=== PATIENT | male | born 1990 | race Hispanic/Latino ===

== ENCOUNTER → 2023-01-11 | Emergency (ER) | payer OTHER, MEDICARE | LOC: EDH 18:39 | DX: R41.82 Altered mental status, unspecified (principal); Z53.21 Procedure and treatment not carried out due to patient leaving prior to being seen by health care provider ==

== ENCOUNTER → 2023-01-11 | Emergency (ER) | payer OTHER, MEDICARE ==
[~2023-01-11] VITALS: Ht 180.3 cm; Wt 64.4 kg
[2023-01-11 19:47] VITALS: BP 128/78; PULSE 98; RESP 20
== END ==
LOC: EDH 19:44
DX: F41.0 Panic disorder [episodic paroxysmal anxiety] (principal); Z53.21 Procedure and treatment not carried out due to patient leaving prior to being seen by health care provider
CPT/HCPCS: 99281

== ENCOUNTER 2023-07-03 21:13 | Emergency (ER) | payer OTHER, MEDICARE ==
[~2023-07-03] VITALS: Ht 177.8 cm; Wt 63.0 kg
[2023-07-04] MEDS ORDERED: 0.9%NACL 1000ML 1,000 ML IV ONE
[2023-07-04 00:42] LABS: BASOPHILS # (AUTO) 0.03 K/uL (0.00-0.20); BASOPHILS % (AUTO) 0.5 % (0.0-5.0); EOSINOPHILS # (AUTO) 0.06 K/uL (0.00-0.70); EOSINOPHILS % (AUTO) 0.9 % (0.0-8.0); HEMATOCRIT 40.3 % (42-54); IMMATURE GRANULOCYTE ABSOLUTE 0.01 K/uL (0-1); LYMPHOCYTES # (AUTO) 2.4 K/uL (1.0-4.8); LYMPHOCYTES % (AUTO) 36.2 % (21.0-51.0); MEAN CORPUSCULAR HEMOGLOBIN 31.4 pg (27.0-33.0); MEAN CORPUSCULAR HGB CONC 34.5 g/dL (32.0-36.0); MEAN CORPUSCULAR VOLUME 91.2 fL (79-99); MONOCYTES # (AUTO) 0.7 K/uL (0.1-1.0); MONOCYTES % (AUTO) 11.2 % (3.0-13.0); NEUTROPHILS # (AUTO) 3.4 K/uL (1.8-7.7); PLATELET COUNT (AUTO) 90 K/uL (130-400); RED BLOOD CELL COUNT(AUTO) 4.42 MIL/uL (4.50-6.20); RED CELL DISTRIBUTION WIDTH 12.8 % (11.0-15.5); WHITE BLOOD COUNT (AUTO) 6.6 K/uL (4.8-10.8)
[2023-07-04 00:49] LABS: CREATININE 0.6 mg/dL (0.5-1.5); POTASSIUM 3.3 mmol/L (3.5-5.1)
[2023-07-04 00:54] LABS: ALBUMIN 3.9 g/dL (3.5-5.0); BILIRUBIN,TOTAL 0.5 mg/dL (0.2-1.0); TOTAL PROTEIN, SERUM 9.8 g/dL (6.0-8.3)
[2023-07-04] MEDS: LACTATED RINGERS 1000ML 1,000 ML IV ONE (07:57)
[2023-07-04] MEDS: LORAZEPAM 2 MG/ML 1 ML VIAL IVP ONE (07:58)
[2023-07-04] MEDS: FAMOTIDINE 20MG VIAL IV ONE (07:59)
[2023-07-04] MEDS: METOCLOPRAMIDE 10 MG/2 ML VIAL IVP ONE (07:59)
[2023-07-04 08:25] LABS: MAGNESIUM 1.6 mg/dL (1.80-2.40); THYROID STIMULATING HORMONE 2.34 uIU/mL (0.36-3.74)
[2023-07-04] MEDS: ONDANSETRON 4MG INJ ONE (09:04)
[2023-07-04] MEDS: ONDANSETRON 4MG INJ IVP ONE (09:04)
[2023-07-04 12:11] VITALS: BP 134/102; PULSE 90; RESP 18; O2SAT 99
[2023-07-04] MEDS ORDERED: ONDANSETRON 4MG INJ ONE (13:28)
[2023-07-04] MEDS ORDERED: ONDANSETRON 4MG INJ IVP ONE ×2 (13:30→14:00)
[2023-07-04] MEDS ORDERED: LORAZEPAM 2 MG/ML 1 ML VIAL IVP ONE (13:30)
[2023-07-04] MEDS: LORAZEPAM 2 MG/ML 1 ML VIAL IM ONE (13:38)
[2023-07-04] MEDS: LORAZEPAM 2 MG/ML 1 ML VIAL ONE (13:38)
== END 2023-07-04 13:45 | disposition home or self-care (01) ==
LOC: EDH 21:13
DX: F10.129 Alcohol abuse with intoxication, unspecified (principal); F10.10 Alcohol abuse, uncomplicated; F41.9 Anxiety disorder, unspecified; F32.A Depression, unspecified; F20.9 Schizophrenia, unspecified
CPT/HCPCS: 99285; 84443; 83735; 80053; 83690; 85025; 36415; 96374; 96375; 96372; J7120; J3490; J2405 ×2; J2060 ×2; J2765

== ENCOUNTER 2025-01-11 19:21 | Emergency (ER) | payer MEDICARE, MEDICAID ==
[~2025-01-11] VITALS: Ht 180.3 cm; Wt 65.8 kg
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
[2025-01-11 19:50] LABS: IMMATURE GRANULOCYTE ABSOLUTE 0.01 K/uL (0-1); NUCLEATED RED BLOOD CELLS 0.0 % (0.0-0.19); PLATELET COUNT (AUTO) 156 K/uL (130-400); RED BLOOD CELL COUNT(AUTO) 4.48 MIL/uL (4.50-6.20); RED CELL DISTRIBUTION WIDTH 13.5 % (11.0-15.5); WHITE BLOOD COUNT (AUTO) 5.8 K/uL (4.8-10.8)
[2025-01-11 19:57] LABS: CREATININE 0.6 mg/dL (0.5-1.3); GLOMERULAR FILTR. RATE CALC 128 mL/min (>90); GLUCOSE,RANDOM 96 mg/dL (70-105); SODIUM SERUM 135 mmol/L (136-145); UREA NITROGEN, BLOOD 3 mg/dL (7-18)
[2025-01-11] MEDS ORDERED: PHARMACY COMMUNICATION MISC PRN (20:00)
[2025-01-11 20:03] LABS: ALCOHOL, BLOOD 316 mg/dL (0-10); CREATINE KINASE, TOTAL 141 U/L (21-232)
[2025-01-11 20:07] LABS: AMPHET/METH SCREEN,URINE NEGATIVE (NEGATIVE); BARBITURATE SCREEN, URINE NEGATIVE (NEGATIVE); CANNABINOID SCREEN,URINE NEGATIVE (NEGATIVE); COCAINE SCREEN,URINE POSITIVE (NEGATIVE)
--- NOTE | 2025-01-11 20:21 | NUR ---
PATIENT REFUSE LIBRIUM, MIDLEVEL MADE AWARE
[2025-01-11 21:09] VITALS: BP 122/72; PULSE 80; RESP 16; TEMP 98.2; O2SAT 100
== END 2025-01-11 21:13 | disposition home or self-care (01) ==
LOC: EDH 19:21
DX: F10.10 Alcohol abuse, uncomplicated (principal); F14.10 Cocaine abuse, uncomplicated; F20.9 Schizophrenia, unspecified; F31.9 Bipolar disorder, unspecified; F41.9 Anxiety disorder, unspecified
CPT/HCPCS: 99283; 82550; 80048; 80305; 85025; 36415; G0481

== ENCOUNTER 2025-02-11 21:44 | Emergency (ER) | payer MEDICARE, MEDICAID ==
[~2025-02-11] VITALS: Ht 177.8 cm; Wt 72.6 kg
[2025-02-11] MEDS: 0.9%NACL 1000ML 1,000 ML IV ONE (22:44)
[2025-02-11 23:00] LABS: IMMATURE GRANULOCYTE ABSOLUTE 0.02 K/uL (0-1); NUCLEATED RED BLOOD CELLS 0.0 % (0.0-0.19); PLATELET COUNT (AUTO) 155 K/uL (130-400); RED BLOOD CELL COUNT(AUTO) 4.17 MIL/uL (4.50-6.20); RED CELL DISTRIBUTION WIDTH 13.5 % (11.0-15.5); WHITE BLOOD COUNT (AUTO) 8.3 K/uL (4.8-10.8)
[2025-02-11 23:09] LABS: CREATININE 0.6 mg/dL (0.5-1.3); GLOMERULAR FILTR. RATE CALC 128.0 mL/min (>90); GLUCOSE,RANDOM 102.0 mg/dL (70-105); SODIUM SERUM 141.0 mmol/L (136-145); UREA NITROGEN, BLOOD 4.0 mg/dL (7-18)
[2025-02-11 23:14] LABS: ALCOHOL, BLOOD 240.0 mg/dL (0-10); CREATINE KINASE, TOTAL 181.0 U/L (21-232)
--- NOTE | 2025-02-11 23:46 | HMCIMG ---
EXAM: CR Chest, 1 view CLINICAL HISTORY: Shortness of breath. COMPARISON: None provided. FINDINGS: Mildly elevated left hemidiaphragm with prominent bowel gas is under it. The lungs show no infiltrates or other acute findings. No pleural effusion or pneumothorax. The cardiomediastinal silhouette is within normal limits. No acute osseous abnormality. IMPRESSION: No acute cardiopulmonary process is evident. Mildly elevated left hemidiaphragm with prominent bowel gas is under it. /[place]
--- NOTE | 2025-02-11 23:49 | HMCIMG ---
EXAM: CR Left Wrist, 3 views CLINICAL HISTORY: Pain. COMPARISON: Radiograph of the left wrist dated 12/27/2007. FINDINGS: No acute fracture. 0.6 cm nonspecific benign appearing cyst within the distal aspect of the scaphoid bone. The carpal bones demonstrate normal alignment. Unremarkable joint spaces. The soft tissues are unremarkable. IMPRESSION: No acute fracture. 0.6 cm nonspecific benign appearing cyst within the distal aspect of the scaphoid bone. This is a new finding compared to the previous radiograph. /[place]
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
--- NOTE | 2025-02-12 06:53 | EKG ---
[facility] Test Date: 2025-02-11 Test Time: 23:21:49 Pat Name: URIEL METZGER Department: [facility] Room: Gender: M Refractory Manager: [id number] : 1990 Requested By: BREANAN KIMBROUGH Order Number: [id number] Reading MD: Selvin Irvin Measurements Intervals [place] Rate: 85 P: 36 NE: 170 QRS: 13 QRSD: 89 T: 20 QT: 379 QTc: 452 Interpretive Statements Sinus rhythm Compared to ECG 12/19/2015 16:30:35 Sinus tachycardia no longer present Left ventricular hypertrophy no longer present Electronically Signed On 02-13-2025 10:54:12 CDT by Selvin Irvin Please click the below link to view image of tracing.
--- NOTE | 2025-02-12 07:40 | NUR ---
ATTEMPTED TO CALL [facility] FOR PT, BUT THEY ARE NOT AVAILABLE UNTIL 0800HRS.
[2025-02-12 07:42] VITALS: BP 135/74; PULSE 88; RESP 14; TEMP 97.6; O2SAT 96
--- NOTE | 2025-02-12 08:17 | NUR ---
[facility] DAVIDSON: I JUST SPOKE TO KADE FROM [place] AND SET UP THE RIDE SHARE FOR THE PT TO BE TAKEN BACK HOME. THE RIDE/TICKET NUMBER IS #[id number]. YUDITH WILL BE THE HAND GLASS CUTTER WHO WILL BE DRIVING A ORANGE COLORED [place] WITH THE LAST 3 OF THE LICENSE PLATE [id number]. THE PT STATED HE WOULD WAIT JUST OUTSIDE THE ED DOORS. I ALSO INSTRUCTED TO KEEP AN EYE OUT IN THE MAIN ENTRANCE WELL, IN THE CASE HE PARKED OVER THERE. PT HAS A STEADY GAIT AND IS A/O X 3 AND VERBALIZED UNDERSTANDING. I WROTE ALL THE INFORMATION DOWN FOR HIM ON AN ORANGE STICKY NOTE. HE WAS ALSO INFORMED THAT HE HAS ONLY 1 RIDE SHARE LEFT AT THIS TIME PER KADE. HE ALSO VERBALIZED UNDERSTANDING OF THAT.
== END 2025-02-12 07:45 | disposition home or self-care (01) ==
LOC: EDH 21:44
DX: F10.10 Alcohol abuse, uncomplicated (principal); F10.129 Alcohol abuse with intoxication, unspecified; Y90.5 Blood alcohol level of 100-119 mg/100 ml
CPT/HCPCS: 99285; 70450; 71045; 82550; 84484; 80048; 85025; 36415 ×2; 73110; 93005; J7030

== ENCOUNTER 2025-03-27 02:06 | Emergency (ER) | payer MEDICARE, MEDICAID ==
[~2025-03-27] VITALS: Ht 177.8 cm; Wt 72.6 kg
[2025-03-27 02:30] LABS: IMMATURE GRANULOCYTE ABSOLUTE 0.02 K/uL (0-1); NUCLEATED RED BLOOD CELLS 0.0 % (0.0-0.19); PLATELET COUNT (AUTO) 32 K/uL (130-400); RED BLOOD CELL COUNT(AUTO) 4.34 MIL/uL (4.50-6.20); RED CELL DISTRIBUTION WIDTH 14.2 % (11.0-15.5); WHITE BLOOD COUNT (AUTO) 3.9 K/uL (4.8-10.8)
--- NOTE | 2025-03-27 02:46 | NUR ---
PT REQUESTS STAFF NOT TO CALL/SPEAK TO FAMILY MEMBERS, PT WILL SPEAK TO FAMILY.
[2025-03-27 02:48] LABS: CREATININE 0.5 mg/dL (0.5-1.3); GLOMERULAR FILTR. RATE CALC 135.0 mL/min (>90); GLUCOSE,RANDOM 101.0 mg/dL (70-105); SODIUM SERUM 137.0 mmol/L (136-145); UREA NITROGEN, BLOOD 4.0 mg/dL (7-18)
[2025-03-27] MEDS: 0.9%NACL 1000ML 1,000 ML IV SCH (02:52)
[2025-03-27 02:53] LABS: CREATINE KINASE, TOTAL 165.0 U/L (21-232)
--- NOTE | 2025-03-27 03:00 | ERN ---
General Chief Complaint: Multiple Complaints Stated Complaint: N/V, FACIAL MUSCLE SPASMS, ETOH Time Seen by MD: 02:07 History of Present Illness Initial Comments 35-year-old male history of seizure disorder, PTSD, anxiety, disabled, here for evaluation of muscle twitching. Patient states that he was lying down watching the stars when he started feeling muscle spasms in his face. He was thus brice t in by EMS for evaluation. Denies any falls. Denies any trauma. Denies any loss of consciousness. States he has been off of his medications for the past two days though he does not know the name of the medications. Allergies: Coded Allergies: No Known Allergies (Unverified Allergy, Unknown, 07/03/23) Past Medical History Past Medical History: Alcoholism, Anxiety, Bipolar, Depression, Seizure Medical History Other: PTSD Past Surgical History: Other Surgical History Other: TENDON REPAIR L HAND Social History Social History: ETOH Neuro: (+) numbness, (+) tremors Physical Exam Physical Exam Dictation GENERAL APPEARANCE NAD, activity normal for age, well developed/ well nourished, no cyanosis, pallor, or diaphoresis. EYES lids/conjunctiva normal. EARS/NOSE/THROAT Mucous membranes moist, nares normal, lips/teeth normal uvula midline without oral pharyngeal erythema, exudate or swelling TMs normal bilaterally. No lymphangitis/lymphedema. HEAD/NECK normocephalic atraumatic, no facial trauma, neck is supple. RESPIRATORY respiratory effort normal, speaks in full sentences, no tripod position, no accessory muscle use. Lungs clear to auscultation without rhonchi, wheezes, rales CARDIAC Regular rate and rhythm, no edema. ABDOMINAL Soft, ND/NT. No evidence of fluid wave. No pulsatile masses on exam, rebound tenderness, Bradshaw sign or pain over Mcburney's point. MUSCLES/EXTREMITIES No abnormal range of motion, no swelling. SKIN Warm, pink and dry. No rashes, dermatoses, petechiae or lesions. NEUROLOGICAL Speech is clear and appropriate. Normal level of consciousness. Gait and coordination are normal. 5/5 strength in all extremities. PSYCH Normal mood and affect. Judgement/competence is appropriate Results Laboratory and Microbiology Lab and Micro Result Laboratory Tests Test 03/27/25 02:24 03/27/25 04:53 White Blood Count 3.9 K/uL (4.8-10.8) L Red Blood Count 4.34 MIL/uL (4.50-6.20) L Hemoglobin 13.9 g/dL (14.0-18.0) L Hematocrit 41.8 % (42-54) L Mean Corpuscular Volume 96.3 fL (79-99) Mean Corpuscular Hemoglobin 32.0 pg (27.0-33.0) Mean Corpuscular Hemoglobin Concent 33.3 g/dL (32.0-36.0) Red Cell Distribution Width 14.2 % (11.0-15.5) Platelet Count 32 K/uL (130-400) L Mean Platelet Volume 9.7 fL (7.5-10.5) Immature Granulocyte % (Auto) 0.5 % (0-1) Neutrophils (%) (Auto) 42.7 % (40.0-77.0) Lymphocytes (%) (Auto) 42.4 % (21.0-51.0) Monocytes (%) (Auto) 12.9 % (3.0-13.0) Eosinophils (%) (Auto) 0.5 % (0.0-8.0) Basophils (%) (Auto) 1.0 % (0.0-5.0) Neutrophils # (Auto) 1.7 K/uL (1.8-7.7) L Lymphocytes # (Auto) 1.6 K/uL (1.0-4.8) Monocytes # (Auto) 0.5 K/uL (0.1-1.0) Eosinophils # (Auto) 0.02 K/uL (0.00-0.70) Basophils # (Auto) 0.04 K/uL (0.00-0.20) Absolute Immature Granulocyte (auto 0.02 K/uL (0-1) Nucleated Red Blood Cells 0.0 % (0.0-0.19) Platelet Morphology Comment See comments Sodium Level 137 mmol/L (136-145) Potassium Level 4.0 mmol/L (3.5-5.1) Chloride Level 97 mmol/L (101-111) L Carbon Dioxide Level 28 mmol/L (21-32) Blood Urea Nitrogen 4 mg/dL (7-18) L Creatinine 0.5 mg/dL (0.5-1.3) Glomerular Filtration Rate Calc 135 mL/min (>90) Random Glucose 101 mg/dL (70-105) Lactic Acid Level 2.6 mmol/L (0.8-2.5) H 1.9 mmol/L (0.8-2.5) Total Calcium 9.2 mg/dL (8.5-10.1) Total Creatine Kinase 165 U/L (21-232) MDM 35-year-old male for possible seizure-like activity. Has been off of his meds. We will give him a bolus of Keppra, fluids and reassess. Disposition pending results of labs and clinical improvement ED Course Orders Procedure Category Date Status Time Creatine Kinase, Total LAB 03/27/25 Complete 02:13 Cbc With Differential LAB 03/27/25 Complete 02:13 Basic Metabolic Panel LAB 03/27/25 Complete 02:13 Drug Screen Urine LAB 03/27/25 Logged 02:13 Urinalysis Profile LAB 03/27/25 Logged 02:13 Lactic Acid LAB 03/27/25 Complete 02:13 Levetiracetam 500 PHA 03/27/25 Complete Mg/5 Ml Sd V (Keppra 5 02:30 0.9%Nacl 1000ml (Ns PHA 03/27/25 In Process 1000ml) 02:30 Alcohol, Blood LAB 03/27/25 In Process 02:31 Lactic Acid LAB 03/27/25 Complete 04:32 Current Medications Medications (Trade) Dose Ordered Sig/Jojo Route PRN Reason Start Time Stop Time Status Last Admin Dose Admin Levetiracetam (kepPRA 500 MG/5 ML SD VIAL) 1,000 mg ONCE ONCE IV 03/27/25 02:30 03/27/25 02:31 DC 03/27/25 02:52 Sodium Chloride 1,000 ml @ 0 mls/hr Q0M IV 03/27/25 02:30 04/26/25 02:29 03/27/25 02:52 Vital Signs Date Time Temp Pulse Resp B/P (MAP) Pulse Ox O2 Delivery O2 Flow Rate FiO2 03/27/25 05:04 96.8 68 18 102/56 100 Room Air* 0 03/27/25 02:34 96.8 81 18 113/78 100 Room Air* 0 03/27/25 02:07 97.9 87 16 122/88 99 Room Air 0 DX & DISP Disposition: Discharge Departure Impression: Primary Impression: Breakthrough seizure Condition: Stable Referrals: TARNG,GLEN (PCP) MAYANK WORTHINGTON MD Mar 27, 2025 03:00
--- NOTE | 2025-03-27 07:02 | NUR ---
PT STATES HE HAS NO RIDE TO GO HOME, NO FAMILY MEMBER ABLE TO PICK HIM UP, PT AMBULATORY, AAOX4. SPOKE TO BUSINESS DEVELOPMENT OFFICER, WILL TRY TO GET HIM AN UBER
[2025-03-27 08:04] VITALS: BP 121/84; PULSE 79; RESP 18; TEMP 98.6; O2SAT 97
== END 2025-03-27 08:21 | disposition home or self-care (01) ==
LOC: EDH 02:06
DX: G40.909 Epilepsy, unspecified, not intractable, without status epilepticus (principal); F10.229 Alcohol dependence with intoxication, unspecified; F31.9 Bipolar disorder, unspecified; F41.9 Anxiety disorder, unspecified; R11.2 Nausea with vomiting, unspecified; Y90.8 Blood alcohol level of 240 mg/100 ml or more
CPT/HCPCS: 99283; 96374; 82550; 80048; 85025; 83605 ×2; 36415; J1953; J7030